=== PATIENT | female | born 1990 | race Caucasian/White ===

== ENCOUNTER 2020-01-17 09:49 | Outpatient (CLI) | payer BC, OTHER ==
[2020-01-18 14:04] LABS: SARS-CoV-2 MS2 Positive; SARS-CoV-2 N Gene Negative; SARS-CoV-2 S Gene Negative; SARS-CoV-2 by NAA Not Detected (NotDetected); SARS-CoV-2 orf1ab Negative
== END 2020-01-17 09:50 | disposition home or self-care (01) ==
LOC: LABSCS 09:49
PROVIDERS: ATTEND Obstetrics & Gynecology
DX: Z20.828 Contact with and (suspected) exposure to other viral communicable diseases (principal)
CPT/HCPCS: 87635; U0003

== ENCOUNTER 2020-01-21 05:22 | Inpatient (IN) | payer BC ==
[2020-01-21 06:01] VITALS: BMI 33.6
[2020-01-21] MEDS ORDERED: Promethazine HCl 25 MG/ML VIAL IM PRN ×2 (06:08→06:58)
[2020-01-21] MEDS ORDERED: hydrALAZINE 20 MG/ML VIAL SLOW IVP PRN ×2 (06:08→09:46)
[2020-01-21] MEDS ORDERED: Lactated Ringer's 1,000 ML IV SCH (06:08)
[2020-01-21] MEDS ORDERED: Ondansetron PF 4 MG/2 ML Vial IVP PRN ×3 (06:08→09:46)
[2020-01-21] MEDS ORDERED: CEFAZOLIN 2 GM in Premix Bag 1 BAG IVPB SCH (06:30)
[2020-01-21] MEDS ORDERED: Bicitra 30 ML UDCUP PO SCH (06:30)
[2020-01-21 06:35] LABS: Hemoglobin 11.4 g/dL (12.0-16.0); Mean Corpuscular HGB CONC 32.8 g/dL (32.0-36.0); Mean Corpuscular Hemoglobin 30.1 pg (27.0-31.0); Mean Corpuscular Volume 91.6 fL (78.0-98.0); Mean Platelet Volume 8.9 fL (7.4-10.4); Platelet Count 180 thou/uL (130-400); RBC Distribution Width 11.5 % (11.5-14.5); Red Blood Cell (RBC) Count 3.78 mill/uL (4.20-5.40); White Blood Cell (WBC) Count 9.7 thou/uL (4.8-10.8)
[2020-01-21] MEDS ORDERED: MORPHINE 5 MG/10 ML PF VIAL ONE (06:36)
[2020-01-21] MEDS ORDERED: Ketorolac Tromethamine 30 MG/ML VIAL ONE (06:37)
[2020-01-21] MEDS ORDERED: Ondansetron PF 4 MG/2 ML Vial ONE (06:37)
[2020-01-21] MEDS ORDERED: Oxytocin 10 UNITS/ML VIAL ONE ×2 (06:37→06:39)
[2020-01-21] MEDS ORDERED: PHENYLEPHRINE-NS 100 MCG/ML 10 ML SYRINGE ONE (06:37)
[2020-01-21] MEDS ORDERED: Dexamethasone 4 mg/ml Vial ONE (06:37)
[2020-01-21] MEDS ORDERED: EPHEDRINE 25 MG/5 ML SYRINGE ONE (06:37)
[2020-01-21] MEDS ORDERED: Naloxone HCl 0.4 mg/ml Vial IV PRN (06:58)
[2020-01-21] MEDS ORDERED: Promethazine HCl 25 MG SUPP PR PRN (06:58)
[2020-01-21] MEDS ORDERED: diphenhydrAMINE 50 MG/ML VIAL IVP PRN (06:58)
[2020-01-21] MEDS ORDERED: Naloxone HCl 0.4 mg/ml Vial IVP PRN ×2 (06:58)
[2020-01-21] MEDS ORDERED: Ketorolac Tromethamine 30 MG/ML VIAL IVP PRN (06:58)
[2020-01-21] MEDS ORDERED: Communication Order-Pharmacy FS SCH (07:00)
[2020-01-21 07:18] LABS: Syphilis Antibody Nonreactive (Nonreactive); Syphilis Antibody Index 0.02 S/CO (<1.00 Non-Reactive)
[2020-01-21 07:18] LABS: HBSAg Index 0.18 S/CO (0-0.99); Hep B Surf Ag Non-Reactive S/CO (NonReactive)
[2020-01-21] MEDS ORDERED: Midazolam HCl 2 mg/2 ml Vial ONE (08:01)
[2020-01-21] MEDS ORDERED: Misoprostol 200 MCG TAB ONE ×2 (08:29→08:30)
[2020-01-21] MEDS ORDERED: Bisacodyl 10 MG SUPP PR PRN (09:46)
[2020-01-21] MEDS ORDERED: Lanolin Ointment 7 GM TUBE TOP PRN (09:46)
[2020-01-21] MEDS ORDERED: diphenhydrAMINE 25 MG CAP PO PRN (09:46)
[2020-01-21] MEDS ORDERED: Simethicone Chewable 80 MG TAB PO PRN (09:46)
[2020-01-21] MEDS ORDERED: Adacel (T-DAP) 0.5 ML SYRINGE IM ONE (09:46)
[2020-01-21] MEDS ORDERED: HYDROcodone/Acetaminophen 5/325 mg Tablet PO PRN (09:46)
[2020-01-21] MEDS ORDERED: Acetaminophen 325 MG TAB PO PRN (09:46)
[2020-01-21] MEDS ORDERED: NS / Oxytocin 40 units/1000ml 1,000 ML IV SCH (09:46)
[2020-01-21] MEDS: Prenatal Vitamin 1 TAB PO SCH (12:26)
[2020-01-21] MEDS: Ibuprofen 800 MG TAB PO SCH ×2 (15:24→20:57)
[2020-01-21] MEDS: Misoprostol 200 MCG TAB PO SCH ×2 (15:28→20:57)
[2020-01-22] MEDS: Misoprostol 200 MCG TAB PO SCH ×2 (02:59→08:45)
[2020-01-22] MEDS: Ibuprofen 800 MG TAB PO SCH ×3 (05:52→20:31)
[2020-01-22 06:18] LABS: Hemoglobin 9.3 g/dL (12.0-16.0); Mean Corpuscular HGB CONC 31.6 g/dL (32.0-36.0); Mean Corpuscular Hemoglobin 29.3 pg (27.0-31.0); Mean Corpuscular Volume 92.8 fL (78.0-98.0); Mean Platelet Volume 8.7 fL (7.4-10.4); Platelet Count 171 thou/uL (130-400); RBC Distribution Width 11.5 % (11.5-14.5); Red Blood Cell (RBC) Count 3.17 mill/uL (4.20-5.40)
--- NOTE | 2020-01-22 06:32 | PDOC.PP ---
Post Progress Note Post Day #: 1 Subjective: Patient overall feeling well this morning. Ate Full liquid diet last night. Denies Nausea/vomiting. Valencia removed 30 min prior to my visit this AM. Awaiting urine output. Denies flatus/BMs. PO intake tolerated: yes (full liquid diet last night) Flatus: no Ambulation: no (got up to bedside chair yesterday) Vital Signs (12 hours) Temp Pulse Resp BP 01/22/20 00:00 98.4 F 94 18 103/56 L 01/21/20 20:00 97.4 F L 92 16 103/57 L Weight Weight 86.183 kg - Physical Examination General: NAD (appears well in color, not pale) Cardiovascular: no m/r/g, RRR Respiratory: clear to auscultation bilaterally, non-labored breathing Abdominal: + bowel sounds (normoactive), no distention, appropriately TTP Fundus firm & at: 1 fingerwidth below umbilicus Deviation from normal: No peripheral edema or erythema Deviation from normal: C/S dressing in place, clean & dry, not disturbed today. Neurological: no gross focal deficits Psychiatric: A&Ox3, normal affect Result Diagrams: 01/22/20 06:01 Additional Labs: Post Labs Blood Type A POSITIVE 01/21/20 06:59 Hep Bs Antigen Non-Reactive S/CO (NonReactive) 01/21/20 06:22 (1) S/P repeat low transverse Code(s): Z98.891 - HISTORY OF UTERINE SCAR FROM PREVIOUS SURGERY Status: Acute (2) Term delivered Code(s): O80 - ENCOUNTER FOR FULL-TERM UNCOMPLICATED DELIVERY Status: Acute - Assessment/Plan 29 yo G2 now P2002 delivered at 39.3 wga : POD #1, s/p RLTCS - delivery of viable male infant, desires circumcision for - pain well controlled w/ ibuprofen - plans on formula feeding. - postop Hemoglobin 9.3 decreased from 11.4. Patient is hemodynamically stable. - QBL 689 postop. On floor: blood loss with fundal massage 119 mL for total of 808 mL. - valencia catheter removed this AM. Monitor for any urinary symptoms and urinary output - routine postoperative and cares - advance diet as tolerated. - ambulate frequently today. Dispo: anticipate continued inpatient stay today on . D/c in 1-2 days pending clinical course and patient's recovery course.
[2020-01-22] MEDS: Prenatal Vitamin 1 TAB PO SCH (08:45)
[2020-01-22] MEDS: HYDROcodone/Acetaminophen 5/325 mg Tablet PO PRN ×2 (09:40→20:32)
--- NOTE | 2020-01-22 10:11 | OP ---
DATE OF PROCEDURE: 01/21/2020 SURGEON: Dr. Sandeep Jackson. PHOTOGRAPHY TEACHER SURGEON: Dr. Kody Meade. RESIDENT SURGEON: Dr. María Tovar. PROCEDURE PERFORMED: Repeat low-transverse section. PREOPERATIVE DIAGNOSES: 1. Term intrauterine . 2. Previous section. POSTOPERATIVE DIAGNOSES: 1. Term intrauterine , delivered. 2. Previous section. ANESTHESIA: Spinal. COMPLICATIONS: None. QUANTITATIVE BLOOD LOSS: 689 mL. SPECIMENS: Cord blood sent to lab for blood type. FINDINGS: Grossly normal male infant with Apgars of 8 and 9 at 1 and 5 minutes respectively. Grossly normal placenta with 3-vessel cord, discarded. DRAINS: Javed to gravity draining clear urine. INDICATIONS: This patient is a 29-year-old, G2, P1-0-0-1 female, at 39.3 weeks gestation, who presents for repeat scheduled . PROCEDURE IN DETAIL: After risks, benefits, and alternatives were explained to the patient, she gave informed consent. Preoperative antibiotics included cefazolin 2 g IV. The patient was taken to the operating room and spinal anesthesia was initiated. She was placed in the supine position with a left tilt and prepped and draped in the usual sterile fashion. A Pfannenstiel incision was made with a scalpel and carried down to the level of the fascia, which was sharply nicked. The fascial cut was extended bilaterally. The inferior and superior edges of the cut fascial edges were elevated with Gillian clamps. The underlying rectus muscles were sharply and bluntly dissected free. The recti were divided digitally and retracted manually. The peritoneum was entered bluntly and retracted manually. Bladder blade was placed. Bladder flap was created with Metzenbaum scissors. A low-transverse incision was made with a scalpel. The uterus was entered in the midline bluntly. Clear fluid was seen. The hysterotomy was extended manually. The was noted to be vertex and easily delivered by fundal pressure. Mouth and nares were bulb suctioned. Cord clamping was delayed by approximately 15 to 20 seconds due to brisk uterine bleeding. The cord was then clamped and cut. A grossly normal male was taken to the warmer. Cord blood was obtained. Placenta was extracted with cord traction and fundal pressure. The placenta was found to be intact with 3-vessel cord noted and then discarded. The uterus was externalized. The endometrium was curetted with a dry lap, and bladder blade was replaced. The uterus was closed with a running locking #1 Monocryl suture on a CTX needle. Hemostasis for the hysterotomy was noted. The uterus was internalized, and the hysterotomy was again noted to be hemostatic. The peritoneum was closed with 2-0 Monocryl suture. The pyramidalis muscle was also brought together with a 2-0 Monocryl suture. The fascia was closed with a running nonlocking 0-Vicryl suture with the exception of locking the first stitch at the corners. Subcutaneous tissue was irrigated. Bleeders were cauterized with the Bovie. The subcutaneous tissue was approximated using 2-0 plain gut suture in a running fashion. The skin was then closed with a 3-0 Monocryl on a Baron needle. The incision was covered with Steri-Strips and dressing. The patient tolerated the procedure well and was taken to recovery room in stable condition. Job ID: [id number] [facility]
[2020-01-23] MEDS: Ibuprofen 800 MG TAB PO SCH (05:40)
--- NOTE | 2020-01-23 06:46 | PDOC.PP ---
Post Progress Note Post Day #: 2 Subjective: Feeling well this AM. Took [place] 5mg yesterday in AM and again in PM. Ambulating, thinks she may have walked too much so had a bit more pain last night than she expected. Bowel movement x1. [place] w/ normal labs and understands he is ready for d/c. PO intake tolerated: yes Flatus: yes Ambulation: yes Vital Signs (12 hours) Temp Pulse Resp BP Pulse Ox 01/23/20 04:00 98.0 F 74 16 101/55 L 01/23/20 00:00 97.7 F 77 16 106/54 L 01/22/20 20:00 97.8 F 86 18 107/63 100 Weight Weight 86.183 kg - Physical Examination General: NAD Cardiovascular: RRR Respiratory: non-labored breathing Abdominal: + bowel sounds, lochia (downtrending), no distention, appropriately TTP Fundus firm & at: 1 fingerwidth below umbilicus Skin: CS incision dry & intact, no rash Deviation from normal: steri strips in place Neurological: no gross focal deficits Psychiatric: A&Ox3, normal affect Result Diagrams: 01/22/20 06:01 Additional Labs: Post Labs Blood Type A POSITIVE 01/21/20 06:59 Hep Bs Antigen Non-Reactive S/CO (NonReactive) 01/21/20 06:22 (1) S/P repeat low transverse Code(s): Z98.891 - HISTORY OF UTERINE SCAR FROM PREVIOUS SURGERY Status: Acute (2) Term delivered Code(s): O80 - ENCOUNTER FOR FULL-TERM UNCOMPLICATED DELIVERY Status: Acute - Assessment/Plan 29 yo G2 now P2002 delivered at 39.3 wga : POD #2, s/p RLTCS - routine postoperative and cares - ambulating and passing flatus - formula feeding - incision clean and dry. Instructed patient on wound care today; avoid submersion in bath and may let water in shower run over incision, gentle cleaning w/ soap & water when steri strips fall off. - continue ibuprofen at home, stool softeners/bowel regimen. Dispo: anticipate discharge home today. F/U in 4-6 weeks or sooner if needed.
[2020-01-23] MEDS: Prenatal Vitamin 1 TAB PO SCH (08:24)
[2020-01-23 08:27] VITALS: BP 113/71; TEMP 97.9
--- NOTE | 2020-01-26 00:56 | PQF ---
CLINICAL DOCUMENTATION CLARIFICATION FORM: Dear : Sandeep Jackson Date / Time: 01/26/2020 Please exercise your independent, professional judgment in responding to the clarification form. Clinical indicators are provided on the bottom of this form for your review Please check appropriate box(es): [ ] Acute posthemorrhagic anemia [ ] Insignificant lab value [ ] Other [ ] Unable to determine In addition, please specify: Present on Admission (POA): [ ] Yes [ ] No [ ] Unable to determine To be completed by CDI/Coding staff for physician review: Present Clinical Indicators - Signs / Symptoms / Labs Results and Location in Medical Record [ x ] Hemoglobin/hematocrit is 11.4/34.6 on 01/20 and 9.3/29.4 on 01/21 Laboratory [ x ] Postop hemoglobin 9.3 decreased from 11.4. QBL 689 postop. On floor: Blood loss with fundal massage 119 mL for total of 808 mL progress note 01/21 by Sandeep Jackson DO Present Risk Factors Results and Location in Medical Record [ x ] QBL 589 postop. 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
== END 2020-01-23 10:40 | disposition home or self-care (01) | DRG 788 ==
LOC: L&D 05:22 → 3SW 10:52
PROVIDERS: ADMIT Obstetrics & Gynecology; ATTEND Obstetrics & Gynecology
PROC: 10D00Z1 Extraction of Products of Conception, Low, Open Approach (ICD-10-PCS; principal; 2020-01-21)
DX: O34.211 Maternal care for low transverse scar from previous cesarean delivery (principal); Z3A.39 39 weeks gestation of pregnancy; Z37.0 Single live birth
CPT/HCPCS: 36415; 51702; 85027; 86780; 86850; 86900; 86901; 87340; J0690; J1100; J1885; J2250; J2274; J2405; J2590